=== PATIENT | male | born 1960 | race African-American/Black ===

== ENCOUNTER 2017-01-04 14:25 | Emergency (ER) | payer MEDICARE, OTHER, MEDICAID ==
[~2017-01-04] VITALS: Ht 175.3 cm; Wt 146.0 kg
[2017-01-04] MEDS ORDERED: IBUPROFEN 800MG TABLET PO ONE (18:00)
[2017-01-04 19:50] VITALS: BP 118/70
== END 2017-01-04 20:03 | disposition home or self-care (01) ==
LOC: ER 16:12
DX: H66.92 Otitis media, unspecified, left ear (principal); M19.90 Unspecified osteoarthritis, unspecified site; F99 Mental disorder, not otherwise specified; Z90.49 Acquired absence of other specified parts of digestive tract; F17.210 Nicotine dependence, cigarettes, uncomplicated; Z88.8 Allergy status to other drugs, medicaments and biological substances
CPT/HCPCS: 99283

== ENCOUNTER 2017-05-12 22:35 | Emergency (ER) | payer MEDICARE, MEDICAID ==
[~2017-05-12] VITALS: Ht 170.2 cm; Wt 138.0 kg
[2017-05-13 00:59] LABS: BASOPHILS % 0.8 % (0.0-2.0); EOSINOPHILS % 6.6 % (0.0-5.0); HEMATOCRIT. 40.7 % (42.0-52.0); HEMOGLOBIN. 14.3 g/dL (14.0-18.0); LYMPHOCYTES % 44.3 % (20.0-50.0); MEAN CORPUSCULAR HEMOGLOBIN 35.2 pg (28.0-32.0); MEAN CORPUSCULAR VOLUME 100.1 fL (80.0-94.0); MEAN PLATELET VOLUME 8.7 fl (7.4-10.4); MONOCYTES % 12.3 % (2.0-8.0); PLATELET 121 x1000/uL (130-400); RED BLOOD CELL COUNT 4.06 mill/uL (4.7-6.1); RED CELL DISTRIBUTION WIDTH 13.9 % (11.6-14.6)
[2017-05-13] MEDS: SODIUM CHLORIDE 0.9% 1,000 ML IV ONE (01:00)
[2017-05-13] MEDS: ONDANSETRON HCL 4MG/2ML VIAL IV STA (01:00)
[2017-05-13] MEDS: KETOROLAC 30MG/ML VIAL IV STA (01:00)
[2017-05-13 01:04] LABS: CHLORIDE 106 mEq/L (98-107)
[2017-05-13 01:12] LABS: CARBON DIOXIDE 26 mEq/L (21-32)
[2017-05-13 01:24] LABS: CLARITY URINE CLEAR (CLEAR); COLOR URINE YELLOW (YELLOW); GLUCOSE URINE NEGATIVE (NEGATIVE); KETONES URINE NEGATIVE (NEGATIVE); LEUKOCYTE ESTERASE URINE 1+ (NEGATIVE); NITRITE URINE NEGATIVE (NEGATIVE); OCCULT BLOOD URINE NEGATIVE (NEGATIVE); PH URINE 6.5 (4.5-8.0); PROTEIN URINE NEGATIVE (NEGATIVE); SPECIFIC GRAVITY URINE 1.011 (1.005-1.030)
[2017-05-13 08:10] VITALS: BP 128/81
== END 2017-05-13 08:10 | disposition home or self-care (01) ==
LOC: ER 22:35
DX: K29.00 Acute gastritis without bleeding (principal); N39.0 Urinary tract infection, site not specified; R74.0 Nonspecific elevation of levels of transaminase and lactic acid dehydrogenase [LDH]; F43.10 Post-traumatic stress disorder, unspecified; Z88.8 Allergy status to other drugs, medicaments and biological substances
CPT/HCPCS: 36415; 80053; 81001; 83690; 85025; 96374; 96375; 99284; J1885; J2405; J7030